=== PATIENT | male | born 1940 | race Caucasian/White ===

== ENCOUNTER → 2018-06-14 | Day surgery (SDC) | payer MEDICARE, OTHER ==
[2018-06-06 13:25] LABS: BASOPHILS # (AUTO) 0.1 (0.0-0.1); BASOPHILS % 0.7 % (0.0-1.0); EOSINOPHILS # (AUTO) 0.3 (0.0-0.4); EOSINOPHILS % 3.5 % (0.0-6.0); HEMATOCRIT 46.7 % (38.2-49.6); HEMOGLOBIN 15.4 g/dL (14.0-18.0); LYMPHOCYTES % 28.6 % (18.0-39.1); MEAN CORPUSCULAR HEMOGLOBIN 32.7 pg (28-32); MEAN CORPUSCULAR VOLUME 99.2 fL (81-99); MONOCYTES # (AUTO) 0.8 (0.2-0.8); MONOCYTES % 11.2 % (4.4-11.3); NEUTROPHILS % 55.7 % (38.7-80.0); PLATELET COUNT 170 x10e3/uL (140-360); RED BLOOD COUNT 4.71 x10e6/uL (4.3-5.7); RED CELL DISTRIBUTION WIDTH 13.5 % (11.7-14.4)
[~2018-06-14] MED LIST: DORZOLAMIDE-TIM10 ML OP; EPINEPHRINE HCL INJ 1 MG/ML AMP ONE; PROPOFOL IV EMULSION 10 MG/ML 20 ML VIAL ONE; TRAVATAN Z5 ML OP
--- OUTSIDE RECORDS SUMMARY | 2018-06-14 05:35 | XMS REPORT | Clinical Summary ---
Author Author [facility] Organization [facility] Address Unknown Phone Unavailable Care Team Providers Care Social Work Coordinator Name Role Phone PCP Unavailable Allergies Active Allergy Reactions Severity Noted Date Comments No Known Drug Allergies 03/06/2016 Current Medications Prescription Sig. Disp. Refills Start End Date Status Date amoxicillin (AMOXIL) 500 Take 1 capsule by mouth. 30 capsule 0 04/27/20 Active mg capsuleIndications: Take 4 capsules 1 hr 12 Gingivitis prior to appt HYDROcodone-acetaminophen Take 1 tablet by mouth 30 tablet 0 05/17/20 Active (NORCO) 5-325 mg every 6 hours as needed 12 tabletIndications: Decay, for Pain. teeth amoxicillin (AMOXIL) 500 Take by mouth. Take 4 28 capsule 0 09/05/19 Active mg capsuleIndications: capsules 1 hr prior to 13 Gingivitis appt Active Problems Problem Noted Date Decay, teeth 05/17/2012 Gingivitis 04/27/2012 Encounters Date Type Specialty Care Team Description 04/08/2018 Office Visit Cardiology Kavitha Quintero MD ICD (implantable cardioverter-defibrillato r), single, in situ (Primary Dx) 10/01/2017 Office Visit Cardiology Kavitha Quintero MD Pacemaker (Primary Dx) after 06/13/2017 Family History Medical History Relation Name Comments Heart Father Hypertension Maternal Grandmother Heart Other Relation Name Status Comments Father heart (Age 62) Maternal Grandmother Mother old age (Age 78) Other Social History Tobacco Use Types Packs/Day Years Used Date Never Smoker Alcohol Use Drinks/Week oz/Week Comments No Sex Assigned at Date Recorded Not on file Last Filed Vital Signs Vital Sign Reading Time Taken Blood Pressure 149/67 04/08/2018 6:41 AM CDT Pulse 69 04/08/2018 6:41 AM CDT Temperature 36.8 C (98.3 F) 04/08/2018 6:41 AM CDT Respiratory Rate 18 04/08/2018 6:41 AM CDT Oxygen Saturation 98% 10/01/2017 7:10 AM CDT Inhaled Oxygen - - Concentration Weight 98.9 kg (218 lb) 04/08/2018 6:41 AM CDT Height 175.3 cm (5' 9") 04/08/2018 6:41 AM CDT Body Mass Index 32.19 04/08/2018 6:41 AM CDT Plan of Treatment Date Type Specialty Care Team Description 10/07/[address] [facility] pac[facility] Health Maintenance Due Date Last Done Comments IMM Pneumococcal Age 66 2006 and Up Results Not on fileafter 06/13/2017
--- OUTSIDE RECORDS SUMMARY | 2018-06-14 05:35 | XMS REPORT ---
Author Author [facility] Address Unknown Phone Unavailable Care Team Providers Care Manufacturer Agent Name Role Phone Unavailable Unavailable Problems This patient has no known problems. Allergies, Adverse Reactions, Alerts This patient has no known allergies or adverse reactions. Medications This patient has no known medications. Encounters Start Date/Time End Date/Time Encounter Type Admission Type Attending [facility] Care Department Encounter ID 2018-10-07 00:00:00 2018-10-07 00:00:00 Outpatient [facility] [id number] 2018-04-08 06:26:00 2018-04-08 06:26:00 Outpatient [facility] [id number] 2017-10-01 07:07:39 2017-10-01 07:07:39 Outpatient [facility] [id number] 2017-04-16 06:44:23 2017-04-16 06:44:23 Outpatient [facility] [id number]
--- NOTE | 2018-06-14 08:58 | Operative Report ---
DATE OF PROCEDURE: June 14, 2018 REFERRING PHYSICIAN: Dr. Carlos Lang REASON FOR COLONOSCOPY: Stool for occult blood was positive. PROCEDURE: After informed written consent, premedications with monitored anesthesia care, standard adult video Olympus colonoscope was introduced into the rectum and all the way into the terminal ileum. The findings are as follows: The sigmoid and distal descending showed scattered diverticulosis. The proximal ascending colon showed a 5-mm polyp removed by cold snare. The mid-ascending colon showed a 1-cm polyp removed by hot snare. The proximal transverse colon showed a 1-cm poly removed by hot snare. The splenic flexure showed a 1-cm polyp removed by hot snare. The proximal descending colon showed a 1-cm polyp removed by hot snare. The distal descending colon at 45 cm showed a 1-cm polyp removed by hot snare. The sigmoid colon at 25 cm from the anal verge showed a 3 cm pedunculated polyp, which was injected with 1 mL of 1:10,000 epinephrine, and then removed with the hot snare. One Endoclip was placed. Roberta ink marking was also placed. IMPRESSION: Seven colon polyps, majority of them removed by hot snare. One large polyp in the sigmoid colon, which was concerning for malignancy. We need to check the pathology on that. This has been marked with Roberta ink and Endoclip has been placed. RECOMMENDATIONS: Avoid aspirin, NSAIDs for 2 weeks. Follow pathology. Colonoscopy in 2 years. Further recommendations will be based on the patient's clinical course. Job#: [id number] [place]
[2018-06-14 09:00] VITALS: BP 148/81
== END | disposition home or self-care (01) ==
LOC: OR 05:33
PROVIDERS: ATTEND Internal Medicine Gastroenterology
DX: R19.5 Other fecal abnormalities (principal); D12.2 Benign neoplasm of ascending colon; D12.3 Benign neoplasm of transverse colon; D12.4 Benign neoplasm of descending colon; D12.5 Benign neoplasm of sigmoid colon; Z71.3 Dietary counseling and surveillance; E66.9 Obesity, unspecified; R06.09 Other forms of dyspnea; Z01.810 Encounter for preprocedural cardiovascular examination; Z01.812 Encounter for preprocedural laboratory examination; Z68.33 Body mass index [BMI] 33.0-33.9, adult; Z95.0 Presence of cardiac pacemaker; Z87.891 Personal history of nicotine dependence
CPT/HCPCS: 36415; 45381; 45385; 85025; 88305; 93005; J0171; J2704; 44391

== ENCOUNTER → 2018-08-23 | Day surgery (SDC) | payer OTHER ==
[2018-08-22 10:21] LABS: BASOPHILS % 0.6 % (0.0-1.0); EOSINOPHILS # (AUTO) 0.2 (0.0-0.4); EOSINOPHILS % 2.5 % (0.0-6.0); HEMATOCRIT 45.5 % (38.2-49.6); HEMOGLOBIN 14.7 g/dL (14.0-18.0); LYMPHOCYTES # (AUTO) 1.4 (1.0-3.2); LYMPHOCYTES % 22.2 % (18.0-39.1); MEAN CORPUSCULAR HEMOGLOBIN 31.7 pg (28-32); MEAN CORPUSCULAR HGB CONC 32.3 g/dL (31-35); MEAN CORPUSCULAR VOLUME 98.3 fL (81-99); MONOCYTES # (AUTO) 0.8 (0.2-0.8); MONOCYTES % 12.5 % (4.4-11.3); PLATELET COUNT 158 x10e3/uL (140-360); RED BLOOD COUNT 4.63 x10e6/uL (4.3-5.7); RED CELL DISTRIBUTION WIDTH 13.9 % (11.7-14.4)
[2018-08-22 10:37] LABS: ALANINE AMINOTRANSFERASE 15 IU/L (0-55); ALBUMIN 3.6 g/dL (3.5-5.0); ALBUMIN/GLOBULIN RATIO 1.2 (0.8-2.0); ALKALINE PHOSPHATASE 78 IU/L (40-150); ANION GAP 12.6 mmol/L (8-16); BLOOD UREA NITROGEN 16 mg/dL (7-26); BUN/CREATININE RATIO 16 (6-25); CALCIUM 10.1 mg/dL (8.4-10.2); CARBON DIOXIDE 25 mmol/L (22-29); CHLORIDE 106 mmol/L (98-107); CHOL/HDL RATIO 2.8 (3.9-4.7); CHOLESTEROL 149 MD/DL (0-199); EST GLOMERULAR FILTRATION RATE > 60 ML/MIN (60-); GLUCOSE 117 mg/dL (74-118); HDL CHOLESTEROL 54 MG/DL (40-60); LDL CHOLESTEROL 62 MG/DL (60-130); POTASSIUM 4.6 mmol/L (3.5-5.1); SODIUM 139 mmol/L (136-145); TRIGLYCERIDES 164 MG/DL (0-149)
[~2018-08-23] VITALS: Ht 172.7 cm; Wt 95.3 kg
[2018-08-23] VITALS (8 sets, daily range): BP systolic 135–165; BP diastolic 51–104
[~2018-08-23] MED LIST changes: +CARVEDILOL3.125 MG PO; -EPINEPHRINE HCL INJ 1 MG/ML AMP ONE; +FENTANYL CITRATE/PF 100MCG/2 ML INJ ONE; +HEPARIN SOD (PORCINE) 1000 UNIT/ML 30ML ONE; +HEPARIN SOD/SOD CHLORIDE 2,000 ML ONE; +IOPAMIDOL 370 MG/ML 200 ML INFUS..BTL INJ ONE; +LIDOCAINE HCL 1% LOCAL INJ 20 ML VIAL ONE; +MIDAZOLAM HCL 2 MG/2 ML VIAL ONE; +NITROGLYCERIN/D5W 200 MCG/ML 250 ML ONE; -PROPOFOL IV EMULSION 10 MG/ML 20 ML VIAL ONE; +SODIUM CHLORIDE 0.9% 1000ML 1,000 ML ONE; +VERAPAMIL HCL 2.5 MG/ML 2 ML VIAL ONE
--- OUTSIDE RECORDS SUMMARY | 2018-08-23 07:24 | XMS REPORT | Clinical Summary ---
Author Author [facility] Organization [facility] Address Unknown Phone Unavailable Care Team Providers Care Glue Maker Name Role Phone PCP Unavailable Allergies Comments Active Allergy Reactions Severity Noted Date No Known Drug Allergies 03/06/2016 Medications End Date Status Medication Sig Dispensed Refills Start Date Active amoxicillin (AMOXIL) 500 Take 1 30 capsule 0 04/27/201 mg capsuleIndications: capsule by 2 Gingivitis mouth. Take 4 capsules 1 hr prior to appt Active HYDROcodone-acetaminophen Take 1 tablet 30 tablet 0 (NORCO) 5-325 mg by mouth 2 tabletIndications: Decay, every 6 hours teeth as needed for Pain. Active amoxicillin (AMOXIL) 500 Take by 28 capsule 0 09/05/201 mg capsuleIndications: mouth. Take 4 3 Gingivitis capsules 1 hr prior to appt Active Problems Problem Noted Date Decay, teeth 05/17/2012 Gingivitis 04/27/2012 Encounters Care Team Description Date Type Specialty Kavitha Quintero MD ICD (implantable cardioverter-defibrillator), single, in situ (Primary Dx) 04/08/2018 Office Visit Cardiology Kavitha Quintero MD Pacemaker (Primary Dx) 10/01/2017 Office Visit Cardiology after 08/22/2017 Family History Medical History Relation Name Comments Heart Father Hypertension Maternal Grandmother Heart Other Relation Name Status Comments Father heart (Age 62) Maternal Grandmother Mother old age (Age 78) Other Social History Date Tobacco Use Types Packs/Day Years Used Never Smoker Alcohol Use Drinks/Week oz/Week Comments No Sex Assigned at Date Recorded Not on file Industry Job Start Date Occupation Not on file Not on file Not on file Travel End Travel History Travel Start No recent travel history available. Last Filed Vital Signs Time Taken Vital Sign Reading 04/08/2018 6:41 AM CDT Blood Pressure 149/67 04/08/2018 6:41 AM CDT Pulse 69 04/08/2018 6:41 AM CDT Temperature 36.8 C (98.3 F) 04/08/2018 6:41 AM CDT Respiratory Rate 18 10/01/2017 7:10 AM CDT Oxygen Saturation 98% - Inhaled Oxygen - Concentration 04/08/2018 6:41 AM CDT Weight 98.9 kg (218 lb) 04/08/2018 6:41 AM CDT Height 175.3 cm (5' 9") 04/08/2018 6:41 AM CDT Body Mass Index 32.19 Plan of Treatment Care Team Description Date Type Specialty [facility] pacemaker 10/07/2018 Office Visit Cardiology Health Maintenance Due Date Last Done Comments IMM Pneumococcal Age 66 2006 and Up Results Not on fileafter 08/22/2017 Insurance Type Payer Benefit Subscriber ID Effective Phone Address Plan / Dates Group [facility] xxxxxxxxx 2016-P [phone] [address] MEDICARE resent [id number] [place] [address]
--- NOTE | 2018-08-23 12:27 | Operative Report ---
DATE OF PROCEDURE: August 23, 2018 INDICATIONS: Coronary artery disease. Abnormal stress test. PROCEDURES PERFORMED 1. Left heart catheterization, selective coronary angiography, left ventriculography. 2. Deployment of right wrist transradial band. COMPLICATIONS: None. RECOMMENDATIONS: Medical therapy with upgrade of single-lead pacemaker to cardiac resynchronization pacemaker. Access was obtained in the right radial artery. A 5-Jordanian sheath was placed. Diagnostic coronary angiogram revealed moderate disease, 30 to 50% luminal stenosis the left main, left anterior descending, ramus intermedius, circumflex and diagonal arteries. Right coronary artery proximal and mid 50%, dominant vessel. LV ejection fraction 40%. LV end-diastolic pressure of 10. No gradient across the aortic valve on pullback. Sheath and guide were removed. TR band applied. Patient discharged home same day. Job#: [id number]
== END | disposition home or self-care (01) ==
LOC: CATH LAB 07:22
PROVIDERS: ATTEND Internal Medicine Interventional Cardiology
DX: I25.118 Atherosclerotic heart disease of native coronary artery with other forms of angina pectoris (principal); R06.02 Shortness of breath; I50.9 Heart failure, unspecified; R94.39 Abnormal result of other cardiovascular function study; Z95.0 Presence of cardiac pacemaker; Z01.812 Encounter for preprocedural laboratory examination; Z68.32 Body mass index [BMI] 32.0-32.9, adult; Z82.49 Family history of ischemic heart disease and other diseases of the circulatory system
CPT/HCPCS: 36415; 80053; 80061; 85025; 93458; C1887; J1644; J2001; J2250; J7030; Q9967

== ENCOUNTER 2019-01-08 20:42 | Observation (INO) | payer MEDICARE, OTHER ==
[~2019-01-08] VITALS: Ht 172.7 cm; Wt 95.3 kg
[~2019-01-08 20:42] MED LIST changes: -FENTANYL CITRATE/PF 100MCG/2 ML INJ ONE; -HEPARIN SOD (PORCINE) 1000 UNIT/ML 30ML ONE; -HEPARIN SOD/SOD CHLORIDE 2,000 ML ONE; -IOPAMIDOL 370 MG/ML 200 ML INFUS..BTL INJ ONE; -LIDOCAINE HCL 1% LOCAL INJ 20 ML VIAL ONE; -MIDAZOLAM HCL 2 MG/2 ML VIAL ONE; -NITROGLYCERIN/D5W 200 MCG/ML 250 ML ONE; -SODIUM CHLORIDE 0.9% 1000ML 1,000 ML ONE; -VERAPAMIL HCL 2.5 MG/ML 2 ML VIAL ONE
--- OUTSIDE RECORDS SUMMARY | 2019-01-08 20:45 | XMS REPORT | Clinical Summary ---
Author Author [facility] Organization [facility] Address Unknown Phone Unavailable Care Team Providers Care Salvage Repairer Name Role Phone PCP Unavailable Allergies Comments [...] (Primary Dx) 10/01/2017 Office Visit Cardiology after 09/08/2017 Family History Medical History Relation Name Comments [...] 2006 and Up Results Not on fileafter 09/08/2017 Insurance Type Payer Benefit Subscriber ID Effective Phone Address Plan / Dates Group [facility] xxxxxxxxx 2016-P [phone] [address] MEDICARE resent [id number] [place] [address]
--- OUTSIDE RECORDS SUMMARY | 2019-01-08 20:45 | XMS REPORT | Clinical Summary ---
Author Author [facility] Organization [facility] Address Unknown Phone Unavailable Care Team Providers Care Registration Officer Name Role Phone PCP Unavailable Allergies Comments [...] (Primary Dx) 10/01/2017 Office Visit Cardiology after 08/31/2017 Family History Medical History Relation Name Comments [...] 2006 and Up Results Not on fileafter 08/31/2017 Insurance Type Payer Benefit Subscriber ID Effective Phone Address Plan / Dates Group [facility] xxxxxxxxx 2016-P [phone] [address] MEDICARE resent [id number] [place] [address]
--- OUTSIDE RECORDS SUMMARY | 2019-01-08 20:45 | XMS REPORT | Continuity of Care Document ---
Author Author [facility] Interface Address Unknown Phone Unavailable Problems Problem Status Onset Date Classification Date Reported Comments Source Decay, teeth Active 05/17/2012 09/09/2018 [facility] Gingivitis Active 04/27/2012 09/09/2018 [facility] ICD , single, in situ Active 09/09/2018 [facility] Pacemaker Active 09/09/2018 [facility] Medications Medication Details Route Status Patient Instructions Ordering Provider Order Date Source amoxicillin (AMOXIL) 500 mg capsule Take by mouth. Take 4 capsules 1 hr prior to appt Oral Active 09/05/2012 [facility] HYDROcodone-acetaminophen (NORCO) 5-325 mg tablet Take 1 tablet by mouth every 6 hours as needed for Pain. Oral Active 05/17/2012 [facility] amoxicillin (AMOXIL) 500 mg capsule Take 1 capsule by mouth. Take 4 capsules 1 hr prior to appt Oral Active 04/27/2012 [facility] Allergies, Adverse Reactions, Alerts Substance Category Reaction Severity Reaction type Status Date Reported Comments Source No Known Drug Allergies Propensity to adverse reactions to drug Active 03/06/2016 [facility] Immunizations Immunization Date Given Site Status Last Updated Comments Source Results Order Name Results Value Reference Range Date Interpretation Comments Source Vital Signs Vital Sign Value Date Comments Source Systolic (mm Hg) 149 04/08/2018 [facility] Diastolic (mm Hg) 67 04/08/2018 [facility] Heart Rate 69 04/08/2018 [facility] Temperature Oral (F) 36.83 [place] 04/08/2018 [facility] Respitory Rate 18 04/08/2018 [facility] Height 175.3 cm 04/08/2018 [facility] Weight 98.884 04/08/2018 [facility] Encounters Location Location Details Encounter Type Encounter Number Reason For Visit Attending Provider ADM Date DC Date Status Source Cardiology Clinic [facility] Office Visit [id number] Kavitha Quintero MD 10/01/2017 10/01/2017 [facility] Cardiology Clinic BT Office Visit [id number] Kavitha Quintero MD 04/08/2018 04/08/2018 [facility] Procedures Procedure Code Date Perfomer Comments Source
[2019-01-08 21:47] LABS: BASOPHILS # (AUTO) 0.1 (0.0-0.1); BASOPHILS % 0.7 % (0.0-1.0); EOSINOPHILS # (AUTO) 0.2 (0.0-0.4); EOSINOPHILS % 3.2 % (0.0-6.0); HEMATOCRIT 43.4 % (38.2-49.6); HEMOGLOBIN 14.6 g/dL (14.0-18.0); LYMPHOCYTES % 28.7 % (18.0-39.1); MEAN CORPUSCULAR HEMOGLOBIN 32.5 pg (28-32); MEAN CORPUSCULAR HGB CONC 33.6 g/dL (31-35); MEAN CORPUSCULAR VOLUME 96.7 fL (81-99); MONOCYTES % 14.6 % (4.4-11.3); NEUTROPHILS # (AUTO) 3.7 (2.1-6.9); NEUTROPHILS % 52.4 % (38.7-80.0); PLATELET COUNT 160 x10e3/uL (140-360); RED BLOOD COUNT 4.49 x10e6/uL (4.3-5.7); RED CELL DISTRIBUTION WIDTH 14.1 % (11.7-14.4)
[2019-01-08 21:52] LABS: INR 1.13; PROTHROMBIN TIME 15.1 seconds (11.9-14.5)
[2019-01-08 21:53] LABS: PARTIAL THROMBOPLASTIN TIME 35.3 seconds (23.8-35.5)
[2019-01-08 22:00] LABS: ALANINE AMINOTRANSFERASE 21 IU/L (0-55); ALBUMIN/GLOBULIN RATIO 1.1 (0.8-2.0); ALKALINE PHOSPHATASE 80 IU/L (40-150); BLOOD UREA NITROGEN 24 mg/dL (7-26); BUN/CREATININE RATIO 23 (6-25); CALCIUM 10.3 mg/dL (8.4-10.2); CARBON DIOXIDE 26 mmol/L (22-29); CHLORIDE 105 mmol/L (98-107); CREATINE KINASE 143 IU/L (30-200); CREATININE, SERUM 1.03 mg/dL (0.72-1.25); EST GLOMERULAR FILTRATION RATE > 60 ML/MIN (60-); GLUCOSE 83 mg/dL (74-118); LIPASE 31 U/L (8-78); SODIUM 141 mmol/L (136-145)
--- NOTE | 2019-01-08 22:02 | Diagnostic Imaging Report ---
EXAMINATION: CHEST SINGLE (PORTABLE) COMPARISON: None INDICATION: Hypertension ^ERMD ORDER ^[id number] ^2134 ^Y DISCUSSION: Frontal view of the chest obtained at 2135 hours. HEART AND MEDIASTINUM: The heart is enlarged. The aorta is normal in morphology. There are calcifications in the arch LINES: Pacer/fibular wires terminate in the right atrium, right ventricle, coronary sinus LUNGS: Pulmonary veins are prominent. The lungs are diffusely hyperinflated. No pneumonia or pulmonary edema. PLEURA: No pleural effusion or pneumothorax. BONES AND SOFT TISSUES: No focal osseous lesion. The soft tissues are normal. IMPRESSION: Cardiomegaly and pulmonary venous hypertension. No acute pulmonary process. Signed by: Dr. Jer Latham MD on 01/08/2019 9:58 PM
[2019-01-08 22:06] LABS: BILIRUBIN,URINE NEGATIVE (NEGATIVE); CLARITY,URINE CLEAR (CLEAR); COLOR,URINE YELLOW (YELLOW); KETONES,URINE NEGATIVE (NEGATIVE); LEUKOCYTE ESTERASE ,URINE NEGATIVE (NEGATIVE); NITRITE,URINE NEGATIVE (NEGATIVE); PROTEIN,URINE DIPSTICK NEGATIVE (NEGATIVE); URINE UROBILINOGEN 0.2 mg/dL (0.2 - 1)
[2019-01-08 22:19] LABS: THYROID STIMULATING HORMONE 3.346 uIU/mL (0.350-4.940)
[2019-01-08] MEDS ORDERED: LOSARTAN POTASS25 MG PO (22:41)
[2019-01-08] MEDS ORDERED: FUROSEMIDE40 MG PO (22:41)
[2019-01-08] MEDS ORDERED: AMIODARONE HCL200 MG PO (22:41)
[2019-01-08] MEDS ORDERED: ATORVASTATIN CA10 MG PO (22:41)
[2019-01-08] MEDS ORDERED: ELIQUIS PO (22:41)
[2019-01-08] MEDS ORDERED: SODIUM CHLORIDE FLUSH 10 ML SYR INJ PRN (23:00)
[2019-01-08 23:03] LABS: BACTERIA,URINE FEW /HPF; EPITHELIAL CELLS,URINE FEW /LPF; RBC,URINE 0-5 /HPF (0-5); WBC,URINE (MAN) 0-5 /HPF (0-5)
[2019-01-08] MEDS: APIXABAN 5 MG TABLET PO SCH (23:25)
--- NOTE | 2019-01-08 23:35 | NUR ---
Patient admitted to unit via stretcher from ER. Patient transferred to bed independently. Daughter at side. Oriented to room, environment and call light. Instructed to call on onset of pain or SOB. Call light within reach.
[2019-01-08 23:40] VITALS: BP 181/79
[2019-01-08 23:41] VITALS: BP 181/79
[2019-01-09] VITALS (10 sets, daily range): BP systolic 110–187; BP diastolic 56–88
[2019-01-09] MEDS ORDERED: HYDRALAZINE HCL 20 MG/ML VIAL IV STA (00:06)
--- NOTE | 2019-01-09 00:09 | NUR ---
Spoke with Dr Holt via phone regarding new admission consult and elevated BP 187/88, 72 ( on admission 181/79, 70) New orders received. Patient and daughter updated on POC.
[2019-01-09 05:59] LABS: BASOPHILS # (AUTO) 0.1 (0.0-0.1); BASOPHILS % 0.8 % (0.0-1.0); EOSINOPHILS # (AUTO) 0.2 (0.0-0.4); EOSINOPHILS % 3.6 % (0.0-6.0); HEMATOCRIT 42.7 % (38.2-49.6); HEMOGLOBIN 14.1 g/dL (14.0-18.0); LYMPHOCYTES # (AUTO) 1.7 (1.0-3.2); LYMPHOCYTES % 27.1 % (18.0-39.1); MEAN CORPUSCULAR HEMOGLOBIN 32.1 pg (28-32); MEAN CORPUSCULAR VOLUME 97.3 fL (81-99); MONOCYTES # (AUTO) 0.9 (0.2-0.8); MONOCYTES % 15.3 % (4.4-11.3); NEUTROPHILS # (AUTO) 3.3 (2.1-6.9); NEUTROPHILS % 52.9 % (38.7-80.0); PLATELET COUNT 144 x10e3/uL (140-360); RED BLOOD COUNT 4.39 x10e6/uL (4.3-5.7)
[2019-01-09 06:26] LABS: CREATINE KINASE MB 3.9 ng/mL (0-5.0)
[2019-01-09 06:53] LABS: ALANINE AMINOTRANSFERASE 17 IU/L (0-55); ALBUMIN 3.5 g/dL (3.5-5.0); ALBUMIN/GLOBULIN RATIO 1.2 (0.8-2.0); ALKALINE PHOSPHATASE 70 IU/L (40-150); BLOOD UREA NITROGEN 22 mg/dL (7-26); BUN/CREATININE RATIO 20 (6-25); CARBON DIOXIDE 25 mmol/L (22-29); CHLORIDE 108 mmol/L (98-107); CHOL/HDL RATIO 2.5 (3.9-4.7); CHOLESTEROL 130 MD/DL (0-199); EST GLOMERULAR FILTRATION RATE > 60 ML/MIN (60-); GLUCOSE 93 mg/dL (74-118); HDL CHOLESTEROL 53 MG/DL (40-60); LDL CHOLESTEROL 51 MG/DL (60-130); SODIUM 142 mmol/L (136-145); TRIGLYCERIDES 129 MG/DL (0-149)
--- NOTE | 2019-01-09 06:55 | NUR ---
walking rounds made with shift commander nurse, patient aware of change and resting in bed. Patient with no signs of distress, call todd within reach and bed in lowest position.
[2019-01-09] MEDS: NON-FORMULARY MEDICATION (Dorzolamide Hcl/Timolol Maleat (Dorzolamide-Timolol Eye Drops) 1 OP SCH ×2 (07:02→16:32)
[2019-01-09] MEDS: TRAVOPROST(OPTH) 2.5 ML BTL OP SCH (07:03)
[2019-01-09] MEDS: FUROSEMIDE 40 MG TAB PO SCH (09:00)
[2019-01-09] MEDS: AMIODARONE HCL 200 MG TAB PO SCH (09:00)
[2019-01-09] MEDS: CARVEDILOL 3.125 MG TAB PO SCH ×2 (09:00→16:32)
[2019-01-09] MEDS: LOSARTAN POTASSIUM 25 MG TAB PO SCH (09:00)
[2019-01-09] MEDS: APIXABAN 5 MG TABLET PO SCH ×2 (09:00→16:32)
[2019-01-09] MEDS: ATORVASTATIN 10 MG TAB PO SCH (09:00)
[2019-01-09] MEDS ORDERED: NON-FORMULARY MEDICATION (Dorzolamide Hcl/Timolol Maleat (Dorzolamide-Timolol Eye Drops) 1 OP SCH (09:00)
[2019-01-09 14:32] LABS: CREATINE KINASE MB 4.2 ng/mL (0-5.0)
--- NOTE | 2019-01-09 23:44 | Consultation ---
DATE OF CONSULTATION: 01/09/2019 Cardiology Consultation HISTORY OF PRESENT ILLNESS: This is a 78-year-old man, who has a history of paroxysmal atrial fibrillation, presence of a permanent pacemaker, hypertension, and hyperlipidemia, who presented to the emergency department with worsening elevated blood pressure. He reports that his heart rates were elevated as well. Denies any chest pain, shortness of breath, palpitations, or near syncope. While he was checking his blood pressure, he noted that his heart rates were in the 155 range. Upon arrival here, the patient was ventricular paced and within normal limits. REVIEW OF SYSTEMS: A 12-point review of system was conducted, is negative otherwise as stated above in the HPI. PAST MEDICAL HISTORY: As stated above. PAST SURGICAL HISTORY: Pacemaker implantation. FAMILY HISTORY: No premature coronary artery disease or sudden cardiac . SOCIAL HISTORY: No illicit drug, alcohol, or tobacco use. ALLERGIES: NO KNOWN DRUG ALLERGIES. MEDICATIONS: See medication reconciliation form. PHYSICAL EXAMINATION: VITAL SIGNS: Temperature is 97.6, heart rate is 70, respirations are 18, blood pressure is 161/73, oxygen saturation is 96% on 2 L nasal cannula. GENERAL: He is a well-appearing elderly male, lying comfortably in bed. HEAD: Normocephalic and atraumatic. EYES: Extraocular muscles are intact. Conjunctivae clear. NECK: No JVD. No bruits. CARDIOVASCULAR: Regular rate and rhythm. No murmurs. LUNGS: Clear to auscultation. ABDOMEN: Soft, nontender, and nondistended. EXTREMITIES: No clubbing, cyanosis, or edema. VASCULAR: 2+ pulses. LABORATORY DATA: Reviewed. Cardiovascular medications, reviewed. Telemetry monitoring revealed ventricular paced rhythm. IMPRESSION: 1. Hypertension. 2. Paroxysmal atrial fibrillation. 3. Presence of a permanent pacemaker. 4. Hyperlipidemia. RECOMMENDATIONS: We will interrogate his pacemaker. Continue current cardiovascular medications for rate and rhythm control in addition to his anticoagulation with Eliquis. Floyd Watkins DO BM/MODL /[id number]
[2019-01-10 00:45] VITALS: BP 152/63
[2019-01-10 04:56] VITALS: BP 162/71
[2019-01-10 07:48] VITALS: BP 138/61
[2019-01-10 08:10] VITALS: BP 138/61
[2019-01-10] MEDS: APIXABAN 5 MG TABLET PO SCH (08:50)
[2019-01-10] MEDS: NON-FORMULARY MEDICATION (Dorzolamide Hcl/Timolol Maleat (Dorzolamide-Timolol Eye Drops) 1 OP SCH (08:50)
[2019-01-10] MEDS: ATORVASTATIN 10 MG TAB PO SCH (08:50)
[2019-01-10] MEDS: FUROSEMIDE 40 MG TAB PO SCH (08:50)
[2019-01-10] MEDS: LOSARTAN POTASSIUM 25 MG TAB PO SCH (08:50)
[2019-01-10] MEDS: AMIODARONE HCL 200 MG TAB PO SCH (08:50)
[2019-01-10] MEDS: CARVEDILOL 3.125 MG TAB PO SCH (08:50)
[2019-01-10] MEDS: TRAVOPROST(OPTH) 2.5 ML BTL OP SCH (08:50)
[2019-01-10 11:48] VITALS: BP 132/60
[2019-01-10] MEDS ORDERED: CIPRO500 MG PO (11:53)
[2019-01-10] MEDS ORDERED: CIPROFLOXACIN 500 MG TAB PO SCH (17:00)
--- NOTE | 2019-02-20 17:04 | Discharge Summary ---
CHIEF COMPLAINT: Rapid heartbeat, short of breath. FINAL DIAGNOSES: 1. Chest pain, resolved. 2. Palpitations, resolved. 3. Atrial fibrillation. 4. Urinary tract infection. DISPOSITION: Home. HOSPITAL COURSE: A 78-year-old male with known history of hypertension, atrial fibrillation, hyperlipidemia, brought to the ER with a 1-day history of intermittent rapid heartbeat, short of breath, chest pain, or diaphoresis. No nausea or vomiting. Episodes occurred at rest. The patient does have an onboard pacemaker defibrillator. Underwent review and evaluation in the emergency room. Telemetry was showing paced capture with the studies performed, x-rays obtained, admission was made for care regarding atrial fibrillation with rapid ventricular response, chest pain, hypertension, coronary artery disease. Requesting a Cardiology follow. We will be monitoring full set of cardiac enzymes as well. With admission, the patient underwent Cardiology followup with Dr. Watkins and with his review, his impression was hypertension, paroxysmal atrial fibrillation, presence of a primary pacemaker, and hyperlipidemia. Recommendations are to interrogate his pacemaker for functionality. Continue current cardiac medications. From the ER, the patient was placed on IMCU, receiving routine IMCU protocol orders, was on a cardiac diet as well. He was beginning to feel much better after his treatment was started. He was on IV fluids, started on amiodarone. His daily medications were continuing. The Eliquis was continuing. Lab studies were followed. He was still doing quite well, was having no new complaints. He was cleared by Cardiology to be discharged home and following discussion with the scoop machine operator, the patient was able to be released home on 01/10/2019 in stable condition. IMAGING: Chest: Findings reveal cardiomegaly and pulmonary venous hypertension. Urine studies, culture reveals Klebsiella oxytoca. LABORATORY STUDIES: CBC studies, initial study unremarkable. Followup study neck study was unremarkable as well. Urinalysis was showing trace of occult blood, 0-5 rbc's by high-power field, 0-5 wbc's by high-power field, few bacteria. Chemistries, initial electrolyte panel stable. Glucose was stable. Kidney function stable. First set of cardiac enzymes were stable. BNP was 113.9, TSH 3.346. Followup chemistries continued to reveal stable electrolytes, stable kidney functions, as well as glucose. Two more sets of cardiac enzymes were normal as well. The patient responded well to care and protocol. The patient stabilized and was able to be discharged home in good condition. With discharge, the patient will continue his cardiac diet. IV to discontinued. No equipments or supplies are necessary. No drains or Canela was needed. Activity level as directed by me as well as by Dr. Watkins. The patient will be following back up with me in my office for the next 2-3 weeks for re-evaluation. He will be continuing on amiodarone 200 mg p.o. b.i.d., atorvastatin calcium 2 mg p.o. daily, carvedilol 6. 25 mg p.o. b.i.d., Cipro 500 mg p.o. q. 12, #30. Dorzolamide-hydrochloride/timolol maleate 10 mL b.i.d. OP, furosemide 40 mg daily, losartan potassium 25 mg daily, Travatan Z 2.5 mL OP, at bedtime; Eliquis 5 mg p.o. b.i.d. Recurrence of symptoms, the patient will report back to the emergency room. Dictated by MARITA Peralta Carlos Lang MD CC/SHLOMO /[id number]
== END 2019-01-10 13:00 | disposition home or self-care (01) ==
LOC: ER 20:42 → ERHOLD 23:01 → IMCU 23:28
DX: I48.0 Paroxysmal atrial fibrillation (principal); Z79.01 Long term (current) use of anticoagulants; Z95.0 Presence of cardiac pacemaker; N39.0 Urinary tract infection, site not specified; I10 Essential (primary) hypertension; I25.10 Atherosclerotic heart disease of native coronary artery without angina pectoris; E78.5 Hyperlipidemia, unspecified; Z95.810 Presence of automatic (implantable) cardiac defibrillator; I11.0 Hypertensive heart disease with heart failure; I50.33 Acute on chronic diastolic (congestive) heart failure
CPT/HCPCS: 36415; 71045; 80053; 80061; 81001; 82550; 82553; 83690; 83880; 84443; 84484; 85025; 85610; 85730; 87086; 87186; 93005; 93306; 99284; G0378; J0360

== ENCOUNTER → 2019-09-08 | Outpatient (CLI) | payer OTHER ==
[~2019-09-08] MED LIST changes: +AMIODARONE HCL200 MG PO; +ATORVASTATIN CA10 MG PO; +CIPRO500 MG PO; +ELIQUIS PO; +FUROSEMIDE40 MG PO; +LIDOCAINE VISC 2% SOLN 15 ML UDC ONE; +LOSARTAN POTASS25 MG PO
== END ==
LOC: WCC 12:47
PROVIDERS: ATTEND Family Medicine Adult Medicine
DX: S51.802A Unspecified open wound of left forearm, initial encounter (principal); S61.201A Unspecified open wound of left index finger without damage to nail, initial encounter; S61.401A Unspecified open wound of right hand, initial encounter; S61.402A Unspecified open wound of left hand, initial encounter; I10 Essential (primary) hypertension; I11.0 Hypertensive heart disease with heart failure; E78.5 Hyperlipidemia, unspecified; I25.10 Atherosclerotic heart disease of native coronary artery without angina pectoris; I48.0 Paroxysmal atrial fibrillation; I50.33 Acute on chronic diastolic (congestive) heart failure; N39.0 Urinary tract infection, site not specified; W08.XXXA Fall from other furniture, initial encounter; Z79.01 Long term (current) use of anticoagulants; Z95.810 Presence of automatic (implantable) cardiac defibrillator

== ENCOUNTER 2019-09-15 13:34 | Outpatient (RCR) | payer MEDICARE ==
[~2019-09-15 13:34] MED LIST changes: -LIDOCAINE VISC 2% SOLN 15 ML UDC ONE
== END 2019-09-16 ==
LOC: WCC 13:34
PROVIDERS: ATTEND Family Medicine Adult Medicine
DX: S61.201A Unspecified open wound of left index finger without damage to nail, initial encounter (principal); S61.401A Unspecified open wound of right hand, initial encounter; S51.802A Unspecified open wound of left forearm, initial encounter; S61.402A Unspecified open wound of left hand, initial encounter; I10 Essential (primary) hypertension; E78.5 Hyperlipidemia, unspecified; I11.0 Hypertensive heart disease with heart failure; I25.10 Atherosclerotic heart disease of native coronary artery without angina pectoris; I48.0 Paroxysmal atrial fibrillation; I50.33 Acute on chronic diastolic (congestive) heart failure; N39.0 Urinary tract infection, site not specified; W08.XXXA Fall from other furniture, initial encounter; Z79.01 Long term (current) use of anticoagulants; Z95.810 Presence of automatic (implantable) cardiac defibrillator

== ENCOUNTER 2021-02-10 12:53 | Outpatient (RCR) | payer MEDICARE, OTHER ==
[~2021-02-10 12:53] MED LIST changes: +LIDOCAINE VISC 2% SOLN 15 ML UDC ONE
[2021-02-10] MEDS ORDERED: MUPIROCIN 2% OINT 22 GM TUBE ONE (13:42)
[2021-02-10 15:06] LABS: BASOPHILS # (AUTO) 0.1 (0.0-0.1); BASOPHILS % 0.8 % (0.0-1.0); EOSINOPHILS # (AUTO) 0.2 (0.0-0.4); EOSINOPHILS % 2.6 % (0.0-6.0); HEMATOCRIT 49.3 % (38.2-49.6); HEMOGLOBIN 16.4 g/dL (14.0-18.0); LYMPHOCYTES # (AUTO) 2.2 (1.0-3.2); LYMPHOCYTES % 29.8 % (18.0-39.1); MEAN CORPUSCULAR HEMOGLOBIN 32.9 pg (28-32); MEAN CORPUSCULAR HGB CONC 33.3 g/dL (31-35); MEAN CORPUSCULAR VOLUME 98.8 fL (81-99); MONOCYTES # (AUTO) 0.9 (0.2-0.8); MONOCYTES % 12.3 % (4.4-11.3); NEUTROPHILS % 54.1 % (38.7-80.0); PLATELET COUNT 175 x10e3/uL (140-360); RED BLOOD COUNT 4.99 x10e6/uL (4.3-5.7); RED CELL DISTRIBUTION WIDTH 13.1 % (11.7-14.4)
[2021-02-10 15:27] LABS: ALBUMIN 3.9 g/dL (3.5-5.0); ALBUMIN/GLOBULIN RATIO 1.1 (0.8-2.0); ANION GAP 15.3 mmol/L (8-16); CREATININE, SERUM 0.96 mg/dL (0.72-1.25); POTASSIUM 4.3 mmol/L (3.5-5.1)
== END 2021-02-15 ==
LOC: WCC 12:53
PROVIDERS: ATTEND Internal Medicine Infectious Disease
DX: S51.001A Unspecified open wound of right elbow, initial encounter (principal); S61.501A Unspecified open wound of right wrist, initial encounter; S61.502A Unspecified open wound of left wrist, initial encounter; S91.104A Unspecified open wound of right lesser toe(s) without damage to nail, initial encounter; I10 Essential (primary) hypertension; E78.5 Hyperlipidemia, unspecified; I11.0 Hypertensive heart disease with heart failure; I25.10 Atherosclerotic heart disease of native coronary artery without angina pectoris; I48.0 Paroxysmal atrial fibrillation; I50.33 Acute on chronic diastolic (congestive) heart failure; N39.0 Urinary tract infection, site not specified; W01.198A Fall on same level from slipping, tripping and stumbling with subsequent striking against other object, initial encounter; W08.XXXA Fall from other furniture, initial encounter; Z79.01 Long term (current) use of anticoagulants; Z95.810 Presence of automatic (implantable) cardiac defibrillator
CPT/HCPCS: 36415; 80053; 84134; 85025